=== PATIENT | male | born 1965 | race Caucasian/White ===

== ENCOUNTER 2020-10-04 22:17 | Observation (INO) | payer BC ==
[~2020-10-04] VITALS: Ht 182.9 cm; Wt 131.8 kg
[2020-10-04] MEDS ORDERED: IV NORMAL SALINE 1000ML BAG 1,000 ML IV ONE (22:30)
[2020-10-04] MEDS ORDERED: IBUPROFEN 200 MG TABLET. PO ONE (22:30)
--- NOTE | 2020-10-04 22:42 | PHYS DOC ---
General Adult EDM: Chief Complaint: MULTIPLE COMPLAINTS HPI: HPI: Patient is a 55 year old male presents with a 2-day history of chills, headache, and nausea. Patient presents to the ER febrile-- 101.3. Fever started tonight after taking Tylenol for the chills. Patient also complains of a headache. He denies any new shortness of breath. Patient with no known Covid contact. 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 Review of Systems: Review of Systems: Review of systems: Constitutional symptoms-positive fever positive chills Eyes- No Discharge, No Visual Loss Respiratory symptoms- No shortness of breath, No wheezing, No Dyspnea on Exertion Cardiovascular Systems; No chest pain, No Palpitations, No syncope Gastrointestinal symptoms: NO abdominal pain, no nausea, no vomiting or diarrhea. Genitourinary symptoms: No dysuria. Musculoskeletal symptoms: No back pain No extremity pain. NEUROLOGICAL Symptoms: Positive headache, no generalized weakness; No focal Weakness Heart Score: C/O Chest Pain: No Risk Factors: Risk Factors: DM, Current or recent (<one month) smoker, HTN, HLP, family history of CAD, obesity. Risk Scores: Score 0 - 3: 2.5% MACE over next 6 weeks - Discharge Home Score 4 - 6: 20.3% MACE over next 6 weeks - Admit for Clinical Observation Score 7 - 10: 72.7% MACE over next 6 weeks - Early Invasive Strategies Current Medications: Current Medications Medications (Trade) Dose Ordered Sig/Gissell Start Time Stop Time Status Last Admin Dose Admin Ibuprofen (Motrin) 600 mg 1X ONCE 10/04/20 22:30 10/04/20 22:31 UNV 10/04/20 22:38 600 MG Ondansetron HCl (Zofran) 4 mg 1X ONCE 10/04/20 23:00 10/04/20 23:01 10/04/20 22:38 4 MG Sodium Chloride 1,000 ml @ 1,000 mls/hr 1X ONCE 10/04/20 22:30 10/04/20 23:29 10/04/20 22:35 1,000 MLS/HR Allergies: Allergies: Allergies Coded Allergies Type Severity Reaction Last Updated Verified diclofenac Allergy Intermediate 10/04/20 Yes hydromorphone Allergy Intermediate 10/04/20 Yes promethazine Allergy Intermediate 3/14/21 Yes Physical Exam: PE: Constitutional: Well developed, well nourished, no acute distress, non-toxic appearance. [] HENT: Normocephalic, atraumatic, bilateral external ears normal, oropharynx moist, no oral exudates, nose normal. [] Eyes: PERRLA, EOMI, conjunctiva normal, no discharge. [] Neck: Normal range of motion, no tenderness, supple, no stridor. [] Cardiovascular:Heart rate regular rhythm, no murmur [] Lungs & Thorax: Bilateral breath sounds clear to auscultation [] Abdomen: Bowel sounds normal, soft, no tenderness, no masses, no pulsatile masses. [] Skin: Warm, dry, no erythema, no rash. [] Back: No tenderness, no CVA tenderness. [] Extremities: No tenderness, no cyanosis, no clubbing, ROM intact, no edema. [] Neurologic: Alert and oriented X 3, normal motor function, normal sensory function, no focal deficits noted. [] Psychologic: Affect normal, judgement normal, mood normal. [] EKG: EKG: EKG performed at 2238 heart rate [address] elevation no ST depression no acute OH [] Radiology/Procedures: Radiology/Procedures: [] Impression: Reason for exam: Fever and shortness of breath. There is a moderate-sized hiatal hernia. No infiltrate is seen. Evaluation of the left base is limited by the overlying heart and hernia. The left hemidiaphragm is not well seen, and some lower lobe opacity or pleural fluid co uld be present. The heart appears mildly enlarged. IMPRESSION: Hiatal hernia. Possible left basilar opacity. Course & Med Decision Making: Course & Med Decision Making Pertinent Labs and Imaging studies reviewed. (See chart for details) [] Patient was evaluated for chief complaint. Work-up consisted of laboratory analysis radiologic imaging and EKG. Results reviewed and discussed with patient. Patient was febrile on arrival. He received ibuprofen as an antipyretic. Patient received IV fluids and Zofran for his nausea. Covid test was obtained rapid was negative. Influenza a and B-. Chest x-ray possible left basilar opacity. Patient was treated with Rocephin and Zithromax. Patient had a white blood cell count of 17 and a potassium of 3.1. Discussed hospitalization versus outpatient therapy. Patient would like to be hospitalized. Patient admitted to hospitalist for further evaluation and treatment. Dragon Disclaimer: Dragon Disclaimer: This electronic medical record was generated, in whole or in part, using a voice recognition dictation system. Departure Departure Impression: Primary Impression: Person under investigation for COVID-19 Additional Impressions: Fever Pneumonia Nausea Leukocytosis Disposition: 09 ADMITTED INPT THIS HOSP Condition: STABLE Referrals: JUSTYN RIZZO (PCP) KD LOUIE DO Oct 04, 2020 22:42
[2020-10-04 22:43] LABS: BASO # 0.1 x10^3/uL (0.0-0.2); BASO % 1 % (0-3); EOS % 0 % (0-3); HEMATOCRIT 44.3 % (39.0-53.0); HEMOGLOBIN 14.6 g/dL (13.0-17.5); LYMPH # 0.7 x10^3/uL (1.0-4.8); LYMPH % 4 % (24-48); MEAN CORPUSCULAR HEMOGLOBIN 26 pg (25-35); MEAN CORPUSCULAR HGB CONC 33 g/dL (31-37); MEAN CORPUSCULAR VOLUME 78 fL (79-100); MONO % 6 % (0-9); NEUT % 90 % (31-73); PLATELET COUNT 212 x10^3/uL (140-400); RED BLOOD COUNT 5.68 x10^6/uL (4.30-5.70); RED CELL DISTRIBUTION WIDTH 18.5 % (11.5-14.5); WHITE BLOOD COUNT 17.8 x10^3/uL (4.0-11.0)
--- NOTE | 2020-10-04 22:44 | EKG ---
[facility] [address] [place] [address] Test Date: 2020-10-04 Test Time: 22:38:51 Pat Name: LYNDSEY GALINDO Department: Room: Gender: [employer] Senior Manager: : [id number] Requested By: KD LOUIE Order Number: [id number] Reading MD: Measurements Intervals Cannon Rate: 103 P: 39 PA: 164 QRS: 86 QRSD: 110 T: 9 QT: 324 QTc: 426 Interpretive Statements SINUS TACHYCARDIA NO SPECIFIC ECG ABNORMALITIES RI6.01 No previous ECG available for comparison
[2020-10-04 23:00] LABS: CALCIUM 8.6 mg/dL (8.5-10.1); CREATININE 1.3 mg/dL (0.7-1.3); GFR 57.5; POTASSIUM 3.6 mmol/L (3.5-5.1)
[2020-10-04] MEDS ORDERED: ONDANSETRON PF 4 MG/2 ML VIAL. IVP ONE ×3 (23:00→23:45)
[2020-10-04 23:05] LABS: ALBUMIN 3.5 g/dL (3.4-5.0); TOTAL BILIRUBIN 0.8 mg/dL (0.2-1.0)
--- NOTE | 2020-10-04 23:06 | RAD ---
Chest AP portable 10/04/2020. Reason for exam: Fever and shortness of breath. There is a moderate-sized hiatal hernia. No infiltrate is seen. Evaluation of the left base is limite d by the overlying heart and hernia. The left hemidiaphragm is not well seen, and some lower lobe opa city or pleural fluid could be present. The heart appears mildly enlarged. IMPRESSION: Hiatal hernia. Possible left basilar opacity. Electronically signed by: Cm Payne Jr., MD (10/04/2020 11:03 PM) [facility]
[2020-10-04] MEDS ORDERED: cefTRIAXone IV Push 1 GM VIAL. IVP ONE (23:45)
[2020-10-04 23:59] LABS: INFLUENZA A PATIENT NEGATIVE (NEGATIVE); INFLUENZA B PATIENT NEGATIVE (NEGATIVE)
[2020-10-05 00:27] LABS: % BANDS 3 % (0-9); % LYMPHS 6 % (24-48); % MONOS 3 % (0-10); % SEGS 88 % (35-66); ANISOCYTOSIS SLIGHT; PLT ESTIMATE ADEQUATE (ADEQUATE); POLYCHROMASIA SLIGHT
[2020-10-05] MEDS ORDERED: AZITHRMYCN 500MG IVPB FOR OMNI 250 ML IV ONE (00:30)
[2020-10-05] MEDS ORDERED: ACETAMINOPHEN 325 MG TABLET. PO PRN ×2 (01:00→08:15)
[2020-10-05] MEDS ORDERED: ONDANSETRON PF 4 MG/2 ML VIAL. IV PRN (01:00)
[2020-10-05] MEDS ORDERED: IV NORMAL SALINE 1000ML BAG 1,000 ML IV ONE (01:45)
[2020-10-05 07:00] VITALS: BP 110/71
--- NOTE | 2020-10-05 07:59 | PDOC1 ---
History and Physical Date of Admission Date of Admission DATE: 10/05/20 TIME: 07:45 Identification/Chief Complaint Chief Complaint Fever, chills Source Source: Chart review, Patient History of Present Illness History of Present Illness Patient is a 55-year-old male who presents to the ED with complaints of worsening fever and chills over the past 2 days. He reports associated headache, nausea, and cough. Reports headache, 8/10. Upon arrival in the ED temperature was noted to be 101.3. Chest x-ray obtained in ED showed left basilar opacity. He denies any known COVID-19 positive contacts. He received broad-spectrum antibiotics and IV fluids in the ED. Will admit patient for further medical management. Past Medical History Past Medical History Hypertension, GERD, neuralgia, chronic pain Past Surgical History Past Surgical History Cholecystectomy, hernia repair Family History Family History Hypertension Social History Smoke: No ALCOHOL: none Drugs: None Current Problem List Problem List Problems Medical Problems: (1) Fever Status: Acute (2) Leukocytosis Status: Acute (3) Nausea Status: Acute (4) Person under investigation for COVID-19 Status: Acute (5) Pneumonia Status: Acute Current Medications Current Medications Current Medications Ibuprofen (Motrin) 600 mg 1X ONCE PO Last administered on 10/04/20at 22:38; Start 10/04/20 at 22:30; Stop 10/05/20 at 00:37; Status DC Ondansetron HCl (Zofran) 4 mg 1X ONCE IVP Last administered on 10/04/20at 22:38; Start 10/04/20 at 23:00; Stop 10/04/20 at 23:01; Status DC Sodium Chloride 1,000 ml @ 1,000 mls/hr 1X ONCE IV Last administered on 10/04/20at 22:35; Start 10/04/20 at 22:30; Stop 10/04/20 at 23:29; Status DC Ondansetron HCl (Zofran) 8 mg 1X ONCE IVP Last administered on 10/04/20at 23:39; Start 10/04/20 at 23:45; Stop 10/04/20 at 23:46; Status DC Ceftriaxone Sodium (Rocephin) 1 gm 1X ONCE IVP Last administered on 10/04/20at 23:39; Start 10/04/20 at 23:45; Stop 10/04/20 at 23:46; Status DC Ondansetron HCl (Zofran) 4 mg 1X ONCE IVP ; Start 10/04/20 at 23:30; Stop 10/04/20 at 23:31; Status UNV Azithromycin 250 ml @ 250 mls/hr 1X ONCE IV Last administered on 10/05/20at 00:28; Start 10/05/20 at 00:30; Stop 10/05/20 at 01:29; Status DC Ondansetron HCl (Zofran) 4 mg PRN Q8HRS PRN IV NAUSEA/VOMITING Last administered on 10/05/20at 04:29; Start 10/05/20 at 01:00; Stop 10/06/20 at 00:59 Acetaminophen (Tylenol) 650 mg PRN Q4HRS PRN PO FEVER > 100.3'F; Start 10/05/20 at 01:00; Stop 10/06/20 at 00:59 Sodium Chloride 1,000 ml @ 1,000 mls/hr 1X ONCE IV Last administered on 10/05/20at 01:32; Start 10/05/20 at 01:45; Stop 10/05/20 at 02:44; Status DC Allergies Allergies: Coded Allergies: diclofenac (Verified Allergy, Intermediate, 10/04/20) hydromorphone (Verified Allergy, Intermediate, 10/04/20) promethazine (Verified Allergy, Intermediate, 10/04/20) ROS Review of System GENERAL: Fevers, chills. Denies weight change or weakness. SKIN: No bruising, hair changes or rashes. EYES: No blurred, double or loss of vision. NOSE AND THROAT: No history of nosebleeds, hoarseness or sore throat. HEART: Denies chest pain, denies palpitations. LUNGS: Cough. Denies hemoptysis, wheezing or shortness of breath. GASTROINTESTINAL: Nausea. Denies vomiting or abdominal pain. GENITOURINARY: Denies dysuria, frequency, urgency, hematuria. NEUROLOGIC: Headache. Denies history of numbness, tingling, tremor or weakness. PSYCHIATRIC: Denies anxiety, denies depression. ENDOCRINE: No history of heat or cold intolerance, polyuria or polydipsia. EXTREMITIES: Denies muscle weakness, joint pain, pain on walking or stiffness. Physical Exam Physical Exam General: Alert, Oriented X3, Cooperative, mild distress HEENT: PERRLA, EOMI Lungs: Left-sided rales. Normal air movement Heart: RRR, no murmurs Cardiovascular: S1, S2 Abdomen: Normal bowel sounds, Soft, No tenderness Extremities: No clubbing, No cyanosis Skin: No rashes, No significant lesion Neuro: Normal speech, Normal tone, Sensation intact Psych/Mental Status: Mental status NL, Mood NL Vitals Vitals Vital Signs Date Time Temp Pulse Resp B/P (MAP) Pulse Ox O2 Delivery O2 Flow Rate FiO2 10/05/20 07:00 95.8 62 18 110/71 (84) 97 Room Air 95.8 Labs Labs Laboratory Tests Test 10/04/20 22:33 10/04/20 23:15 10/04/20 23:16 White Blood Count 17.8 x10^3/uL (4.0-11.0) Red Blood Count 5.68 x10^6/uL (4.30-5.70) Hemoglobin 14.6 g/dL (13.0-17.5) Hematocrit 44.3 % (39.0-53.0) Mean Corpuscular Volume 78 fL (79-100) Mean Corpuscular Hemoglobin 26 pg (25-35) Mean Corpuscular Hemoglobin Concent 33 g/dL (31-37) Red Cell Distribution Width 18.5 % (11.5-14.5) Platelet Count 212 x10^3/uL (140-400) Neutrophils (%) (Auto) 90 % (31-73) Lymphocytes (%) (Auto) 4 % (24-48) Monocytes (%) (Auto) 6 % (0-9) Eosinophils (%) (Auto) 0 % (0-3) Basophils (%) (Auto) 1 % (0-3) Neutrophils # (Auto) 16.0 x10^3/uL (1.8-7.7) Lymphocytes # (Auto) 0.7 x10^3/uL (1.0-4.8) Monocytes # (Auto) 1.0 x10^3/uL (0.0-1.1) Eosinophils # (Auto) 0.0 x10^3/uL (0.0-0.7) Basophils # (Auto) 0.1 x10^3/uL (0.0-0.2) Segmented Neutrophils % 88 % (35-66) Band Neutrophils % 3 % (0-9) Lymphocytes % 6 % (24-48) Monocytes % 3 % (0-10) Platelet Estimate Adequate (ADEQUATE) Giant Platelets Occ Polychromasia Slight Anisocytosis Slight Sodium Level 131 mmol/L (136-145) Potassium Level 3.6 mmol/L (3.5-5.1) Chloride Level 96 mmol/L (98-107) Carbon Dioxide Level 24 mmol/L (21-32) Anion Gap 11 (6-14) Blood Urea Nitrogen 15 mg/dL (8-26) Creatinine 1.3 mg/dL (0.7-1.3) Estimated GFR (Cockcroft-Gault) 57.5 BUN/Creatinine Ratio 12 (6-20) Glucose Level 182 mg/dL (70-99) Lactic Acid Level 1.0 mmol/L (0.4-2.0) Calcium Level 8.6 mg/dL (8.5-10.1) Total Bilirubin 0.8 mg/dL (0.2-1.0) Aspartate Amino Transf (AST/SGOT) 21 U/L (15-37) Alanine Aminotransferase (ALT/SGPT) 39 U/L (16-63) Alkaline Phosphatase 141 U/L (46-116) Troponin I Quantitative < 0.017 ng/mL (0.000-0.055) Total Protein 7.0 g/dL (6.4-8.2) Albumin 3.5 g/dL (3.4-5.0) Albumin/Globulin Ratio 1.0 (1.0-1.7) SARS-CoV-2 Antigen (Rapid) Negative (NEGATIVE) Influenza Type A Antigen Negative (NEGATIVE) Influenza Type B Antigen Negative (NEGATIVE) Laboratory Tests Test 10/04/20 22:33 10/04/20 23:15 10/04/20 23:16 White Blood Count 17.8 x10^3/uL (4.0-11.0) Red Blood Count 5.68 x10^6/uL (4.30-5.70) Hemoglobin 14.6 g/dL (13.0-17.5) Hematocrit 44.3 % (39.0-53.0) Mean Corpuscular Volume 78 fL (79-100) Mean Corpuscular Hemoglobin 26 pg (25-35) Mean Corpuscular Hemoglobin Concent 33 g/dL (31-37) Red Cell Distribution Width 18.5 % (11.5-14.5) Platelet Count 212 x10^3/uL (140-400) Neutrophils (%) (Auto) 90 % (31-73) Lymphocytes (%) (Auto) 4 % (24-48) Monocytes (%) (Auto) 6 % (0-9) Eosinophils (%) (Auto) 0 % (0-3) Basophils (%) (Auto) 1 % (0-3) Neutrophils # (Auto) 16.0 x10^3/uL (1.8-7.7) Lymphocytes # (Auto) 0.7 x10^3/uL (1.0-4.8) Monocytes # (Auto) 1.0 x10^3/uL (0.0-1.1) Eosinophils # (Auto) 0.0 x10^3/uL (0.0-0.7) Basophils # (Auto) 0.1 x10^3/uL (0.0-0.2) Segmented Neutrophils % 88 % (35-66) Band Neutrophils % 3 % (0-9) Lymphocytes % 6 % (24-48) Monocytes % 3 % (0-10) Platelet Estimate Adequate (ADEQUATE) Giant Platelets Occ Polychromasia Slight Anisocytosis Slight Sodium Level 131 mmol/L (136-145) Potassium Level 3.6 mmol/L (3.5-5.1) Chloride Level 96 mmol/L (98-107) Carbon Dioxide Level 24 mmol/L (21-32) Anion Gap 11 (6-14) Blood Urea Nitrogen 15 mg/dL (8-26) Creatinine 1.3 mg/dL (0.7-1.3) Estimated GFR (Cockcroft-Gault) 57.5 BUN/Creatinine Ratio 12 (6-20) Glucose Level 182 mg/dL (70-99) Lactic Acid Level 1.0 mmol/L (0.4-2.0) Calcium Level 8.6 mg/dL (8.5-10.1) Total Bilirubin 0.8 mg/dL (0.2-1.0) Aspartate Amino Transf (AST/SGOT) 21 U/L (15-37) Alanine Aminotransferase (ALT/SGPT) 39 U/L (16-63) Alkaline Phosphatase 141 U/L (46-116) Troponin I Quantitative < 0.017 ng/mL (0.000-0.055) Total Protein 7.0 g/dL (6.4-8.2) Albumin 3.5 g/dL (3.4-5.0) Albumin/Globulin Ratio 1.0 (1.0-1.7) SARS-CoV-2 Antigen (Rapid) Negative (NEGATIVE) Influenza Type A Antigen Negative (NEGATIVE) Influenza Type B Antigen Negative (NEGATIVE) Images Images CHEST AP ONLY Chest AP portable 10/04/2020. Reason for exam: Fever and shortness of breath. There is a moderate-sized hiatal hernia. No infiltrate is seen. Evaluation of the left base is limited by the overlying heart and hernia. The left hemidiaphragm is not well seen, and some lower lobe opacity or pleural fluid could be present. The heart appears mildly enlarged. IMPRESSION: Hiatal hernia. Possible left basilar opacity. VTE Prophylaxis Ordered VTE Prophylaxis Devices: No VTE Pharmacological Prophylaxi: Yes Assessment/Plan Assessment/Plan Sepsis Community-acquired pneumonia Hyperglycemia Plan: Continue empiric antibiotic treatment with Rocephin and azithromycin IV fluids COVID-19 pending Resume home medications Currently patient states her symptoms have greatly improved, and if he continues to do so he may discharge later this afternoon. FEN - Cardiac diet PPX - Lovenox FULL CODE Dispo - inpatient for above Justifications for Admission Other Justification NGHIA WEST MD Oct 05, 2020 07:59
[2020-10-05] MEDS ORDERED: CALCIUM CARBONATE 500 MG TAB.CHEW PO PRN (08:15)
[2020-10-05] MEDS ORDERED: ONDANSETRON PF 4 MG/2 ML VIAL. IVP PRN (08:15)
[2020-10-05] MEDS ORDERED: BISACODYL 10 MG SUPP.RECT. PR PRN (08:15)
[2020-10-05] MEDS ORDERED: traMADol 50 MG TABLET PO PRN (08:15)
[2020-10-05] MEDS ORDERED: MAG HYDROX/ALUMINUM HYD/SIMETH 30 ML ORAL.SUSP PO PRN (08:15)
[2020-10-05] MEDS ORDERED: ZOLPIDEM 5 MG TABLET. PO PRN (08:15)
[2020-10-05] MEDS ORDERED: MAGNESIUM HYDROXIDE 2,400 MG/30 ML ORAL.SUSP. PO PRN (08:15)
[2020-10-05] MEDS ORDERED: ENOXAPARIN 40 MG/0.4 ML SYRINGE. SQ SCH (09:00)
[2020-10-05 11:00] VITALS: BP 124/73
[2020-10-05] MEDS ORDERED: OXYC1TAB19 PO (11:07)
[2020-10-05] MEDS ORDERED: LIDO700A21 TP (11:07)
[2020-10-05] MEDS ORDERED: OLME20TA17 PO (11:07)
[2020-10-05] MEDS ORDERED: TEST200V3 IM (11:07)
[2020-10-05] MEDS ORDERED: ESOM40CA PO (11:07)
--- NOTE | 2020-10-05 12:22 | PDOC3 ---
Discharge Summary Visit Information Date of Admission: Oct 05, 2020 Date of Discharge: Oct 05, 2020 Final Diagnosis Problems Medical Problems: (1) Fever Status: Acute (2) Leukocytosis Status: Acute (3) Nausea Status: Acute (4) Person under investigation for COVID-19 Status: Acute (5) Pneumonia Status: Acute Brief Hospital Course Allergies Allergies Coded Allergies Type Severity Reaction Last Updated Verified diclofenac Allergy Intermediate 10/04/20 Yes hydromorphone Allergy Intermediate 10/04/20 Yes promethazine Allergy Intermediate 10/04/20 Yes Vital Signs Vital Signs Date Time Temp Pulse Resp B/P (MAP) Pulse Ox O2 Delivery O2 Flow Rate FiO2 10/05/20 11:00 96.4 73 18 124/73 (90) 95 Room Air 96.4 Lab Results Laboratory Tests Test 10/04/20 22:33 10/04/20 23:15 10/04/20 23:16 White Blood Count 17.8 x10^3/uL (4.0-11.0) Red Blood Count 5.68 x10^6/uL (4.30-5.70) Hemoglobin 14.6 g/dL (13.0-17.5) Hematocrit 44.3 % (39.0-53.0) Mean Corpuscular Volume 78 fL (79-100) Mean Corpuscular Hemoglobin 26 pg (25-35) Mean Corpuscular Hemoglobin Concent 33 g/dL (31-37) Red Cell Distribution Width 18.5 % (11.5-14.5) Platelet Count 212 x10^3/uL (140-400) Neutrophils (%) (Auto) 90 % (31-73) Lymphocytes (%) (Auto) 4 % (24-48) Monocytes (%) (Auto) 6 % (0-9) Eosinophils (%) (Auto) 0 % (0-3) Basophils (%) (Auto) 1 % (0-3) Neutrophils # (Auto) 16.0 x10^3/uL (1.8-7.7) Lymphocytes # (Auto) 0.7 x10^3/uL (1.0-4.8) Monocytes # (Auto) 1.0 x10^3/uL (0.0-1.1) Eosinophils # (Auto) 0.0 x10^3/uL (0.0-0.7) Basophils # (Auto) 0.1 x10^3/uL (0.0-0.2) Segmented Neutrophils % 88 % (35-66) Band Neutrophils % 3 % (0-9) Lymphocytes % 6 % (24-48) Monocytes % 3 % (0-10) Platelet Estimate Adequate (ADEQUATE) Giant Platelets Occ Polychromasia Slight Anisocytosis Slight Sodium Level 131 mmol/L (136-145) Potassium Level 3.6 mmol/L (3.5-5.1) Chloride Level 96 mmol/L (98-107) Carbon Dioxide Level 24 mmol/L (21-32) Anion Gap 11 (6-14) Blood Urea Nitrogen 15 mg/dL (8-26) Creatinine 1.3 mg/dL (0.7-1.3) Estimated GFR (Cockcroft-Gault) 57.5 BUN/Creatinine Ratio 12 (6-20) Glucose Level 182 mg/dL (70-99) Lactic Acid Level 1.0 mmol/L (0.4-2.0) Calcium Level 8.6 mg/dL (8.5-10.1) Total Bilirubin 0.8 mg/dL (0.2-1.0) Aspartate Amino Transf (AST/SGOT) 21 U/L (15-37) Alanine Aminotransferase (ALT/SGPT) 39 U/L (16-63) Alkaline Phosphatase 141 U/L (46-116) Troponin I Quantitative < 0.017 ng/mL (0.000-0.055) Total Protein 7.0 g/dL (6.4-8.2) Albumin 3.5 g/dL (3.4-5.0) Albumin/Globulin Ratio 1.0 (1.0-1.7) SARS-CoV-2 Antigen (Rapid) Negative (NEGATIVE) Influenza Type A Antigen Negative (NEGATIVE) Influenza Type B Antigen Negative (NEGATIVE) Laboratory Tests Test 10/04/20 22:33 10/04/20 23:15 10/04/20 23:16 White Blood Count 17.8 x10^3/uL (4.0-11.0) Red Blood Count 5.68 x10^6/uL (4.30-5.70) Hemoglobin 14.6 g/dL (13.0-17.5) Hematocrit 44.3 % (39.0-53.0) Mean Corpuscular Volume 78 fL (79-100) Mean Corpuscular Hemoglobin 26 pg (25-35) Mean Corpuscular Hemoglobin Concent 33 g/dL (31-37) Red Cell Distribution Width 18.5 % (11.5-14.5) Platelet Count 212 x10^3/uL (140-400) Neutrophils (%) (Auto) 90 % (31-73) Lymphocytes (%) (Auto) 4 % (24-48) Monocytes (%) (Auto) 6 % (0-9) Eosinophils (%) (Auto) 0 % (0-3) Basophils (%) (Auto) 1 % (0-3) Neutrophils # (Auto) 16.0 x10^3/uL (1.8-7.7) Lymphocytes # (Auto) 0.7 x10^3/uL (1.0-4.8) Monocytes # (Auto) 1.0 x10^3/uL (0.0-1.1) Eosinophils # (Auto) 0.0 x10^3/uL (0.0-0.7) Basophils # (Auto) 0.1 x10^3/uL (0.0-0.2) Segmented Neutrophils % 88 % (35-66) Band Neutrophils % 3 % (0-9) Lymphocytes % 6 % (24-48) Monocytes % 3 % (0-10) Platelet Estimate Adequate (ADEQUATE) Giant Platelets Occ Polychromasia Slight Anisocytosis Slight Sodium Level 131 mmol/L (136-145) Potassium Level 3.6 mmol/L (3.5-5.1) Chloride Level 96 mmol/L (98-107) Carbon Dioxide Level 24 mmol/L (21-32) Anion Gap 11 (6-14) Blood Urea Nitrogen 15 mg/dL (8-26) Creatinine 1.3 mg/dL (0.7-1.3) Estimated GFR (Cockcroft-Gault) 57.5 BUN/Creatinine Ratio 12 (6-20) Glucose Level 182 mg/dL (70-99) Lactic Acid Level 1.0 mmol/L (0.4-2.0) Calcium Level 8.6 mg/dL (8.5-10.1) Total Bilirubin 0.8 mg/dL (0.2-1.0) Aspartate Amino Transf (AST/SGOT) 21 U/L (15-37) Alanine Aminotransferase (ALT/SGPT) 39 U/L (16-63) Alkaline Phosphatase 141 U/L (46-116) Troponin I Quantitative < 0.017 ng/mL (0.000-0.055) Total Protein 7.0 g/dL (6.4-8.2) Albumin 3.5 g/dL (3.4-5.0) Albumin/Globulin Ratio 1.0 (1.0-1.7) SARS-CoV-2 Antigen (Rapid) Negative (NEGATIVE) Influenza Type A Antigen Negative (NEGATIVE) Influenza Type B Antigen Negative (NEGATIVE) Brief Hospital Course Mr. Vick is a 55 old male who presented with community-acquired pneumonia. Symptoms improved with IV antibiotics and IV fluids. Continue outpatient antibiotic regimen and discharge home with family care. Discharge Information Condition at Discharge: Improved Disposition/Orders: D/C to Home Scheduled Esomeprazole Magnesium (Nexium Capsule) 40 Mg Capsule.dr, 1 CAP PO BID for GERD, #30 Ref 5 (Reported) Entered as Reported by: ESTELA YANG RN on 10/05/201106 Last Taken: Unknown Dose on Unknown Date & Time Last Action: New Order on 10/05/201106 by ESTELA YANG RN Lidocaine (Lidocaine PATCH ) 1 Each Adh..patch, 1 EACH TP DAILY for FOR LOCAL PAIN, (Reported) REMOVE AFTER 12 HOURS Entered as Reported by: ESTELA YANG RN on 10/05/201106 Last Taken: Unknown Dose on Unknown Date & Time Last Action: New Order on 10/05/201106 by ESTELA YANG RN Olmesartan Medoxomil (Benicar) 20 Mg Tablet, 1 TAB PO BID for HTN for 30 Days, #60 Ref 0 (Reported) Entered as Reported by: ESTELA YANG RN on 10/05/201106 Last Taken: Unknown Dose on Unknown Date & Time Last Action: New Order on 10/05/201106 by ESTELA YANG RN Testosterone Cypionate (Testosterone Cypionate) 200 Mg/1 Ml Vial, 1 ML IM WEEKLY for unknown, #10 Ref 1 (Reported) Entered as Reported by: ESTELA YANG RN on 10/05/201106 Last Taken: Unknown Dose on Unknown Date & Time Last Action: New Order on 10/05/201106 by ESTELA YANG RN Scheduled PRN Oxycodone/Apap 7.5-325 (Percocet 7.5-325 Mg Tablet ) 1 Each Tablet, 1 TAB PO PRN Q6HRS PRN for PAIN, Ref 0 (Reported) Entered as Reported by: ESTELA YANG RN on 10/05/201106 Last Taken: Unknown Dose on Unknown Date & Time Last Action: New Order on 10/05/201106 by ESTELA YANG RN Justicifation of Admission Dx: Justifications for Admission: Justification of Admission Dx: Yes NGHIA WEST MD Oct 05, 2020 12:22
[2020-10-05] MEDS ORDERED: AZIT250T6 PO (12:24)
[2020-10-05] MEDS ORDERED: AMOX1TAB61 PO (12:24)
--- NOTE | 2020-10-05 12:53 | NUR ---
SW following for discharge planning. Pt on room air, regular diet. RAPID COVID result negative. Pt to discharge on oral medications. Pt to discharge home today, 10/05 self-care. No SW needs identified on discharge.
[2020-10-05 15:00] VITALS: BP 121/76
--- NOTE | 2020-10-05 16:20 | NUR ---
Discharge Note: BARRETT GALINDO Discharge instructions and discharge home medications reviewed with patient and a copy given. Pt informed prescriptions were sent to his pharmacy on file. All questions have been answered and understanding verbalized. The following instructions and handouts were given: Covid-19 isolation and discharge instructions, SOB, and PNA Discontinued IV lines. Patient discharged to home with self care via wheelchair.
[2020-10-05] MEDS ORDERED: AZITHROMYCIN 250 MG in IV NORMAL SALINE 250ML 250 ML IV SCH (20:00)
[2020-10-05] MEDS ORDERED: LACTOBACILLUS RHAMNOSUS GG 1 CAPSULE. PO SCH (21:00)
[2020-10-05] MEDS ORDERED: cefTRIAXone IV Push 1 GM VIAL. IVP SCH (21:00)
[2020-10-06] MEDS ORDERED: AZITHROMYCIN 250 MG in IV NORMAL SALINE 250ML 250 ML IV SCH (09:00)
--- NOTE | 2020-10-06 17:47 | NUR ---
IP: Attempted to contact pt concerning COVID results. No answer. left a voicemail to return the call.
--- NOTE | 2020-10-07 13:54 | NUR ---
IP: Attempted a second time to contact pt concerning COVID results, No answer, left a voicemail again. No further attempts will be made by this IP.
== END 2020-10-05 16:40 | disposition home or self-care (01) ==
LOC: ER 22:17 → ED HOLD 10-05 02:27 → 6 SOUTH 10-05 06:34
PROVIDERS: ADMIT Internal Medicine; ATTEND Internal Medicine
DX: A41.9 Sepsis, unspecified organism (principal); Z20.822 Contact with and (suspected) exposure to COVID-19; D72.829 Elevated white blood cell count, unspecified; J18.9 Pneumonia, unspecified organism; K21.9 Gastro-esophageal reflux disease without esophagitis; K44.9 Diaphragmatic hernia without obstruction or gangrene; R11.0 Nausea; R73.9 Hyperglycemia, unspecified; I10 Essential (primary) hypertension; Z90.49 Acquired absence of other specified parts of digestive tract; Z98.890 Other specified postprocedural states
CPT/HCPCS: 36415; 71045; 80053; 83605; 84484; 85007; 85025; 87426; 87804; 93005; 96361; 96365; 96372; 96375; 96376; 99285; G0378; J0456; J0696; J1650; J2405; J7030; U0003; G0379

== ENCOUNTER → 2020-11-20 | Outpatient (CLI) | payer BC ==
[~2020-11-20] MED LIST: AMOX1TAB61 PO; AZIT250T6 PO; ESOM40CA PO; ESZO3TAB28 PO; LIDO700A21 TP; OLME20TA17 PO; OLME40TA12 PO; ONDA4TAB7 PO; OXYC1TAB19 PO; TEST200V3 IM; VARD20TA2 PO
== END ==
LOC: LAB 11:54
PROVIDERS: ATTEND Orthopaedic Surgery
DX: Z01.812 Encounter for preprocedural laboratory examination (principal); Z20.822 Contact with and (suspected) exposure to COVID-19; M65.341 Trigger finger, right ring finger; M65.331 Trigger finger, right middle finger
CPT/HCPCS: U0003; U0005

== ENCOUNTER 2020-11-24 06:45 | Day surgery (SDC) | payer BC ==
[~2020-11-24] VITALS: Ht 185.4 cm; Wt 129.3 kg
[~2020-11-24 06:45] MED LIST changes: +IV RINGERS,LACTATED 1000ML 1,000 ML IV SCH; +MORPHINE SULFATE 2 MG/ML VIAL. IVP PRN; -ONDA4TAB7 PO; +ceFAZolin SODIUM 3 GM in IV DEXTROSE 5% 100ML 100 ML IV PRN; +fentaNYL PF VIAL 100 MCG/2 ML VIAL IVP PRN
[2020-11-24] MEDS ORDERED: ONDA4TAB7 PO (07:42)
--- NOTE | 2020-11-24 07:44 | DISCH ---
DISCHARGE INSTRUCTIONS Condition on Discharge Condition on Discharge: Stable Activity After Discharge Activity Instructions for Disc: Other, see below (Avoid hard grasping for 3 weeks postoperatively, may use hand for fine motor use such as eating writing and typing and similar activities) Lifting Instructions after Dis: No heavy lifting Weight Bearing Status after Di: No restrictions Diet after Discharge Diet after Discharge: Regular Wound Incision Care Wound/Incision Care: Change dressing (May remove dressing in about 3 days, keep dry in shower or tub) Contacting the DRFilippo after DC Call your doctor for: Concerns you may have Follow-Up Follow up with: Dr. Seymour 7 to 10 days RAUL SEYMOUR MD November 24, 2020 07:44
[2020-11-24] MEDS ORDERED: LIDOCAINE 2% PF 5 ML VIAL. ONE (07:46)
[2020-11-24] MEDS ORDERED: fentaNYL PF VIAL 100 MCG/2 ML VIAL ONE (07:46)
[2020-11-24] MEDS ORDERED: MIDAZOLAM HCL/PF 2 MG/2 ML VIAL. ONE (07:46)
[2020-11-24] MEDS ORDERED: PROPOFOL 10 MG/ML (20ML) VIAL. IV ONE (07:46)
[2020-11-24] MEDS ORDERED: DEXAMETHASONE SOD PHOS 4 MG/ML VIAL ONE (07:46)
[2020-11-24] MEDS ORDERED: SEVOFLURANE 31 TO 60 MINUTES. IH ONE (07:46)
[2020-11-24] MEDS ORDERED: ONDANSETRON PF 4 MG/2 ML VIAL. ONE (07:47)
[2020-11-24] MEDS ORDERED: BUPIVACAINE MPF 0.5% 30 ML VIAL. ONE (08:22)
--- NOTE | 2020-11-24 09:19 | PDOC4 ---
Operative Note Operative Note Date of surgery: 11/24/2020 Preoperative diagnosis: Right long and ring finger triggering with new onset of pain in the right fifth finger with palpable prominence of the flexor tendon and no overt catching Postoperative diagnosis: Same Operative procedure: Trigger finger release of right long ring and small fingers Surgeon: Dawn Assist: Tee sepinosa Anesthesia: General Estimated blood loss: 2 cc Complications: None Operative indications: Please see my orthopedic clinic note for detailed operative indications and note that in addition to the symptomatic triggering of the right long and ring fingers he presented preoperatively with additional pain in the right fifth finger similar to how the other fingers started. He does not have overt locking at the present time but notes no relief from previous in jection with recurrence and is very symptomatic and a labor-intensive job. We had reviewed risk benefits postoperative course of trigger finger release including the possibility of nerve or blood vessel damage pain and scarring over the surgical site among others all his questions were answered he wishes to proceed with surgical evaluation and treatment Operative text: Patient was identified procedure verified patient placed in the supine position on the operating table. After adequate amounts of general anesthesia were administered the right upper extremity was prepped and draped in standard sterile fashion with an upper arm tourniquet. After timeout was performed patient procedure identified and verified the right upper extremity was exsanguinated by Esmarch bandage tourniquet inflated to 250 mmHg and an incision was made over the distal palmar crease centered over the right ring finger extending to the flexor tendon course of the long and small fingers as well and careful blunt dissection was carried out to protect the neurovascular bundles and incision of the tendon sheath was carried out along the midline of the long ring and small fingers respectively with release of the A1 calixto in all cases and triggering was completely resolved with full range of motion. Flexor profundus and superficialis were noted to be intact. Thorough irrigation carried out normal saline solution bleeding points controlled by electrocautery and skin closed with nylon suture. Sterile soft dressings were applied fingers were noted be warm pink following deflation of tourniquet patient was returned to recovery room stable condition having tolerated procedure well. Tee ortiz assist was present for the procedure including patient positioning draping retraction closure and dressings RAUL ROSAS MD November 24, 2020 09:19
[2020-11-24 09:35] VITALS: BP 132/92
== END 2020-11-24 10:00 | disposition home or self-care (01) ==
LOC: SURG 06:45
PROVIDERS: ATTEND Orthopaedic Surgery
DX: M79.644 Pain in right finger(s) (principal); M65.341 Trigger finger, right ring finger; I10 Essential (primary) hypertension; G47.30 Sleep apnea, unspecified; K21.9 Gastro-esophageal reflux disease without esophagitis; Z90.49 Acquired absence of other specified parts of digestive tract; Z79.899 Other long term (current) drug therapy; Z98.890 Other specified postprocedural states; Z88.1 Allergy status to other antibiotic agents; Z88.8 Allergy status to other drugs, medicaments and biological substances
CPT/HCPCS: 26055; J1100; J2250; J2405; J2704; J3010; J3490; A4657; A4930; A6402; A6452

== ENCOUNTER 2021-05-03 19:43 | Emergency (ER) | payer BC ==
[~2021-05-03 19:43] MED LIST changes: -IV RINGERS,LACTATED 1000ML 1,000 ML IV SCH; -MORPHINE SULFATE 2 MG/ML VIAL. IVP PRN; +ONDA4TAB7 PO; -ceFAZolin SODIUM 3 GM in IV DEXTROSE 5% 100ML 100 ML IV PRN; -fentaNYL PF VIAL 100 MCG/2 ML VIAL IVP PRN
== END 2021-05-03 20:48 | disposition left against medical advice (07) ==
LOC: ER 19:43
DX: R10.9 Unspecified abdominal pain (principal); R53.83 Other fatigue; Z53.21 Procedure and treatment not carried out due to patient leaving prior to being seen by health care provider

== ENCOUNTER → 2021-10-05 | Outpatient (CLI) | payer BC ==
--- NOTE | 2021-10-05 12:57 | RAD ---
EXAM: Nuclear gastric emptying scan. HISTORY: Nausea and vomiting. COMPARISON: None. TECHNIQUE: Serial static images were obtained over the stomach following oral administration of 2 mCi 99m-Tc sulfur colloid. FINDINGS: The stomach empties into the small bowel without evidence of reflux in the area of the esop hagus. Gastric retention percents: 1 hour 81% (normal range 34.8-91%) 2 hour 51% (normal range 2.7-60%) 3 hour 48% (normal range 0.5-28%) 4 hour 36% (normal range 0-10%) The estimated time for half emptying of gastric contents, i.e. 'gastric emptying time' is 137 minutes (normal is 66 +/- 22 minutes). IMPRESSION: Delayed gastric emptying. Electronically signed by: Rosa Conte MD (10/05/2021 12:54 PM) [id number]
== END ==
LOC: NM 07:55
PROVIDERS: ATTEND Internal Medicine Gastroenterology
DX: R10.13 Epigastric pain (principal); R11.2 Nausea with vomiting, unspecified
CPT/HCPCS: 78264; A9541